=== PATIENT | female | born 1995 | race Caucasian/White ===

== ENCOUNTER 2016-07-02 15:26 | Emergency (ER) | payer OTHER ==
[~2016-07-02] VITALS: Ht 157.5 cm; Wt 52.6 kg
[2016-07-02 16:53] VITALS: BP 110/71
== END 2016-07-02 16:53 | disposition home or self-care (01) ==
LOC: ED 15:26
DX: R07.89 Other chest pain (principal)
CPT/HCPCS: Q0092